=== PATIENT | male | born 2000 | race Hispanic/Latino ===

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

== ENCOUNTER 2024-05-23 17:28 | Emergency (ER) | payer SELFPAY ==
[~2024-05-23] VITALS: Ht 177.8 cm; Wt 81.6 kg
[2024-05-23] MEDS: LIDOCAINE HCL 1% 20 ML VIAL INJ SCH (17:57)
[2024-05-23] MEDS: HYDROcodone/APAP 5/325 1 TAB TABLET PO ONE (17:57)
[2024-05-23] MEDS: AMOX/CLAV 875/125MG TAB PO ONE (17:57)
[2024-05-23] MEDS ORDERED: NEOMY SULF/BACITRA/POLYMYXIN B 1 EACH PACKET TP ONE (18:00)
[2024-05-23] MEDS: teTANUS/diphthERIA TOXOID [ADULT] 0.5 ML VIAL IM ONE (18:04)
[2024-05-23] MEDS ORDERED: AMOX1TAB16 PO (18:21)
[2024-05-23] MEDS ORDERED: IBUP-2077 PO (18:21)
[2024-05-23] MEDS ORDERED: MUPI22O TP (18:21)
[2024-05-23 18:23] VITALS: BP 145/81; PULSE 62; RESP 17; TEMP 98.2; O2SAT 100
== END 2024-05-23 18:29 | disposition home or self-care (01) ==
LOC: EDH 17:28
DX: S61.051A Open bite of right thumb without damage to nail, initial encounter (principal); S61.451A Open bite of right hand, initial encounter; W54.0XXA Bitten by dog, initial encounter; Y93.89 Activity, other specified; Y92.89 Other specified places as the place of occurrence of the external cause; Y99.8 Other external cause status
CPT/HCPCS: 12002; 90471; 90714